=== PATIENT | male | born 1985 | race Caucasian/White ===

== ENCOUNTER → 2022-01-06 16:35 | Outpatient (CLI) | payer BC, OTHER, SELFPAY ==
--- NOTE | ~2022-01-06 | MR_ITS ---
EXAMINATION: MR knee RT wo con DATE: 01/06/2022 17:07 INDICATION: Right knee pain TECHNIQUE: Magnetic resonance imaging (MRI) of the right knee was performed without intravenous contr ast. Sequences included coronal PD-weighted FSE, coronal PD-weighted FS FSE, sagittal T2-weighted FS E, sagittal PD-weighted FS FSE and axial PD weighted fat saturated FSE. COMPARISON: None. FINDINGS: Medial compartment: Longitudinal vertically oriented linear increased signal contacting the cephalad and caudal articular surfaces of the in the peripheral third of the posterior horn of the medial meniscus which could rep resent either residual/recurrent tear or repaired tear. Mild partial-thickness cartilage loss with s ome chondral surface regularity centered at the junction of the anterior to central weightbearing med ial femoral condyle. Additional shallow chondral surface irregularity at the central aspect of the me dial tibial plateau. Lateral compartment: Lateral meniscus is normal. Partial-thickness cartilage loss with deep fissuring at the central to po sterior weightbearing lateral femoral condyle. Additional partial thickness cartilage loss with minim al underlying subarticular edema-like signal change at the posterior rim of the lateral tibial platea u. Patellofemoral compartment: Full/near full-thickness chondral fissure at the medial aspect of the lateral patellar facet near the apical ridge. Additional deep chondral fissuring at the junction of the medial and odd facet. Deep c hondral fissuring at the trochlear groove. Ligaments and tendons: Posterior cruciate ligament is normal. Postoperative change of prior anterior cruciate ligament recon struction. A portion of the graft remains intact, following a normal angle relative to the mid sagitt al plane and with normal low signal. There is however a portion of the graft which appears thickened and with increased signal near the entrance to the tibial tunnel which suspicious for possible tear. The medial collateral ligament and fibular collateral ligament complex are normal. Patellar tendon is normal. Mild distal quadriceps tendinopathy without tear. The visualized medial and lateral hamstrin g tendons as well as the iliotibial band are normal. Fluid: Physiologic amount of fluid in the joint space. No loose osteochondral bodies identified. Osseous/other: Bone alignment is normal. No fracture or pathologic marrow replacing process. IMPRESSION: 1. Anterior cruciate ligament reconstruction with likely partial tear involving a portion of the diane t. 2. Longitudinal vertical tear at the posterior horn of the medial meniscus which could be either resi dual, recurrent or repaired tear. Correlate with surgical history and if clinically indicated MRI art hrogram could be obtained to differentiate tear from scarring related to a prior repaired tear. 3. 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 Reviewed, dictated and finalized at location A. IMPRESSION: 1. Anterior cruciate ligament reconstruction with likely partial tear involving a portion of the graft. 2. Longitudinal vertical tear at the posterior horn of the medial meniscus whic h could be either residual, recurrent or repaired tear. Correlate with surgical history and if clinically indicated MRI arthrogram could be obtained to differ entiate tear from scarring related to a prior repaired tear. 3. 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
== END ==
PROVIDERS: PCP Nurse Practitioner Family; Visit Provider Nurse Practitioner Family
DX: S83.241A Other tear of medial meniscus, current injury, right knee, initial encounter (principal); M17.11 Unilateral primary osteoarthritis, right knee
CPT/HCPCS: 73721